=== PATIENT | male | born 1980 | race Caucasian/White ===

== ENCOUNTER 2020-02-19 20:58 | Observation (INO) | payer OTHER ==
[2020-02-19 21:06] VITALS: BMI 30.2
--- OUTSIDE RECORDS SUMMARY | 2020-02-19 21:17 | XMS ---
:1980 Author Organization [facility] Support Name Relationship Address Phone UE Unavailable Unavailable Unavailable LISSETTE SOTO FATHER [address] [place] [id number] Re-disclosure Warning The records that you are about to access may contain information from federally- assisted alcohol or drug abuse programs. If such information is present, then the following federally mandated warning applies: This information has been disclosed to you from records protected by federal confidentiality rules (42 CFR part 2). The federal rules prohibit you from making any further disclosure of this information unless further disclosure is expressly permitted by the written consent of the person to whom it pertains or as otherwise permitted by 42 CFR part 2. A general authorization for the release of medical or other information is NOT sufficient for this purpose. The Federal rules restrict any use of the information to criminally investigate or prosecute any alcohol or drug abuse patient.The records that you are about to access may contain highly sensitive health information, the redisclosure of which is protected by Article 27-F of the [facility] Public Health law. If you continue you may haveaccess to information: Regarding HIV / AIDS; Provided by facilities licensed or operated by the [facility] Office of Mental Health; or Provided by the [facility] Office for People With Developmental Disabilities. If such information is present, then the following [facility] mandated warning applies: This information has been disclosed to you from confidential records which are protected by state law. State law prohibits you from making any further disclosure of this information without the specific written consent of the person to whom it pertains, or as otherwise permitted by law. Any unauthorized further disclosure in violation of state law may result in a fine or skilled nursing sentence or both. A general authorization for the release of medical or other information is NOT sufficient authorization for further disclosure. Insurance Providers Payer name Policy type Policy ID Covered Covered alliance party's Policy P tien / Coverage alliance party ID relationship to [place] Inf ormation type [place] SELF PAY SP INSURANCE
--- NOTE | 2020-02-19 21:23 | PDOC ---
History of Present Illness - General Chief Complaint: Allergic Reaction Stated Complaint: HIVES Time Seen by Provider: 02/19/20 21:23 - History of Present Illness Initial Comments: 02/19/20 21:48 39 y.o. M no significant PMHx presenting due to an allergic reaction. Patients son was by bedside translating. Patient had been driving around 7pm today when he started to break out in hives. Prior to this event there is no recall of any insect bites or medications taken. The last meal was at 12pm which was chicken and rice and they were at work today in a boogie environment. PMHx: None Meds: In Chart Past History - Medical History Allergies/Adverse Reactions: Allergies Allergy/AdvReac Type Severity Reaction Status Date / Time No Known Allergies Allergy Verified 02/19/20 21:06 Home Medications: Ambulatory Orders NK [No Known Home Medication] 02/20/20 COPD: No Other medical history: gout? - Psycho-Social/Smoking History Smoking History: Never smoked - Substance Abuse Hx (Audit-C & DAST Scrn) How often the patient has a drink containing alcohol: Never Score: In Men: 4 or > Positive; In Women: 3 or > Positive: 0 Screen Result (Pos requires Nsg. Audit-10AR): Negative In the last yr the pt used illegal drug/Rx for NonMed reason: No Score: Yes response is considered Positive: 0 Screen Result (Positive result requires Nsg. DAST-10): Negative Review of Systems - Review of Systems Able to Perform ROS?: Yes Is the patient limited Divehi proficient: Yes Constitutional: No: Chills, Fever HEENTM: No: Blurred Vision, Double Vision Respiratory: No: Cough, Shortness of Breath Cardiac (ROS): Yes: Lightheadedness. No: Chest Pain ABD/GI: Yes: Nausea, Vomiting. No: Constipated, Diarrhea : No: Burning, Dysuria Musculoskeletal: No: Back Pain, Muscle Weakness Integumentary: Yes: Flushing, Pruritus, Rash. No: Bruising, Sweating Neurological: Yes: Dizziness. No: Headache, Numbness Hematologic/Lymphatic: No: Easy Bleeding, Easy Bruising *Physical Exam - Vital Signs Last Vital Signs Temp Pulse Resp BP Pulse Ox 97.8 F 114 H 19 116/85 97 02/19/20 21:01 02/19/20 21:01 02/19/20 21:01 02/19/20 21:01 02/19/20 21:01 - Physical Exam General Appearance: Yes: Nourished, Appropriately Dressed. No: Apparent Distress HEENT: positive: Normal ENT Inspection, Normal Voice Respiratory/Chest: positive: Lungs Clear, Normal Breath Sounds. negative: Chest Tender, Crackles, Rales, Stridor, Wheezing Cardiovascular: positive: Regular Rhythm, Regular Rate. negative: Edema, JVD, Murmur Gastrointestinal/Abdominal: positive: Normal Bowel Sounds, Flat, Soft. negative: Tender Musculoskeletal: positive: Normal Inspection. negative: CVA Tenderness Extremity: negative: Normal Inspection, Normal Range of Motion, Tender, Swelling, Calf Tenderness Integumentary: positive: Dry, Warm, Hives (Diffuse hives on the upper extremitie s), Rash, Swelling Neurologic: positive: Fully Oriented, Alert, Normal Mood/Affect, Normal Response ED Treatment Course - LABORATORY CBC & Chemistry Diagram: 02/20/20 05:30 02/20/20 05:30 Medical Decision Making - Medical Decision Making 02/19/20 21:51 39 y.o. M no significant PMHx presenting due to an allergic reaction. DDx: Anaphylactic reaction Labs: WBC 12.4, Na 134 CXR: Pending EKG: NSR, QTc 425ms, rate 76 Dispo: Admit - While speaking with the patient he had a syncopal event on the stretcher, patients pressure dropped, had 300mL of green emesis. We gave him one round of IM Epi, 50mg Benadryl, Pepcid and 1L NS. 02/19/20 22:54 02/19/20 23:34 Discharge - Discharge Information Problems reviewed: Yes Clinical Impression/Diagnosis: Anaphylaxis Qualifiers: Encounter type: initial encounter Qualified Code(s): T78.2XXA - Anaphylactic shock, unspecified, initial encounter Condition: Critical - Admission Yes - Follow up/Referral - Patient Discharge Instructions - Post Discharge Activity
[2020-02-19] MEDS ORDERED: methylPREDNISolone NA SUCC 125 MG/2 ML VIAL IVPUSH ONE (21:30)
[2020-02-19] MEDS ORDERED: FAMOTIDINE 20 MG/50 ML IVPB 20 MG/50 ML MG IVPB ONE ×3 (21:30→22:08)
[2020-02-19] MEDS ORDERED: methylPREDNISolone NA SUCC 125 MG/2 ML VIAL ONE ×2 (21:32→22:07)
[2020-02-19] MEDS ORDERED: EPINEPHrine/PF 1 MG/1 ML (1:1,000) AMPULE ONE (21:36)
[2020-02-19] MEDS ORDERED: EPINEPHrine 1:1,000 0.3 MG/0.3 ML SYR IM ONE (21:45)
[2020-02-19] MEDS ORDERED: SODIUM CHLORIDE 0.9% 1000 ML INFUS.BAG IV ONE (21:46)
[2020-02-19] MEDS ORDERED: ONDANSETRON 4 MG/2 ML VIAL IVPUSH ONE (21:46)
--- NOTE | 2020-02-19 21:47 | PDOC ---
Documentation entered by Garland Wong SCRIBE, acting as scribe for Ju Bustillo DO. Ju Bustillo, : This documentation has been prepared by the Judith hernandez Xhesika, SCRIBE, under my direction and personally reviewed by me in its entirety. I confirm that the documentation accurately reflects all work, treatment, procedures, and medical decision making performed by me. Attending Attestation - Resident Resident Name: Ermias Villavicencio - ED Attending Attestation I have performed the following: I have examined & evaluated the patient, The case was reviewed & discussed with the resident, I agree w/resident's findings & plan, Exceptions are as noted - HPI HPI: 02/19/20 21:41 39y/o M with no PMH of who presents to the ED with entire body hives and itchiness s/p allergic reaction. Per son at bedside, the pt was driving at around 7PM and started to break out in hives. Pt's last meal was chicken and rice at 12PM. Son notes the patient was at work in a boogie environment today. Pt had a syncopal episode while in the ED hallway. Allergies: NKDA - Physicial Exam PE: 02/19/20 21:42 GENERAL: Awake, alert, and oriented HEAD: No signs of trauma EYES: PERRLA, EOMI, sclera anicteric, conjunctiva clear ENT: Auricles normal inspection, hearing grossly normal, nares patent, oropharynx clear without exudates. Moist mucosa. Uvula midline, not edematous. NECK: Normal ROM, supple, no lymphadenopathy, JVD, or masses LUNGS: Breath sounds equal, clear to auscultation bilaterally. No wheezes, and no crackles HEART: +tachy,+hypotensive. no murmurs, rubs or gallops ABDOMEN: Soft, nontender, normoactive bowel sounds. EXTREMITIES: Normal range of motion, no edema. No clubbing or cyanosis. No cords, erythema, or tenderness NEUROLOGICAL: Cranial nerves II through XII grossly intact. SKIN: Warm, Dry. +hives from head to toe - Critical Care Time Total Critical Care Time: 35 Critical Care Statement: The care of this patient involved high complexity decision making to prevent further life threatening deterioration of the patient's condition and/or to evaluate & treat vital organ system(s) failure or risk of failure. - Medical Decision Making 02/19/20 22:13 a/p: 39yo male with a acute allergic reaction tonight -was driving in the car home from work when he told his friend he didn't feel -pt acutely developed hives -in the ER pt became hypotensive, tachy - 84/62, HR 132 -pt vomited -pt having an anaphylactic reaction -no airway involvement, no lip or tongue swelling, tolerating secretions, no stridor or wheezing 02/19/20 23:28 pt feeling better hives resolved airway patent no stridor no wheezing no tongue or lip swelling no angioedema bp improved -labs reviewed potassium hemolyzed will repeat chem/potassium 02/20/20 00:18 pt pending admission repeat chem shows potassium of 4 pt feeling much better, resting comfortably microblog sent for admission 02/20/20 00:19 Heart Score/ECG Review - ECG Intrepretation Comment:: 02/19/20 22:31 sinus at 76, nl axis, nl interval, no acute st/t wave findings Discharge - Discharge Information Problems reviewed: Yes Clinical Impression/Diagnosis: Anaphylaxis Condition: Critical - Follow up/Referral - Patient Discharge Instructions - Post Discharge Activity
[2020-02-19 22:37] LABS: BASO % 0.4 % (0-2.0); EOS % 1.4 % (0-4.5); HEMATOCRIT 49.1 % (35.4-49); HEMOGLOBIN 16.5 GM/dL (11.7-16.9); LYMPH % 33.4 % (8-40); MCH 29.4 pg (25.7-33.7); MCHC 33.7 g/dl (32.0-35.9); MEAN CELL VOLUME 87.4 fl (80-96); MEAN PLT VOLUME 8.1 fl (7.5-11.1); MONO % 7.4 % (3.8-10.2); NEUT % 57.4 % (42.8-82.8); PLATELET COUNT 312 K/MM3 (134-434); RBC 5.62 M/mm3 (4.00-5.60); RDW 12.7 % (11.9-15.9); WHITE BLOOD COUNT 12.4 K/mm3 (4.0-10.0)
[2020-02-19 23:20] LABS: ALK PHOS 70 U/L (45-117); ANION GAP 5 MMOL/L (8-16); BILIRUBIN,TOTAL 0.4 mg/dL (0.2-1); BLOOD UREA NITROGEN 15.2 mg/dL (7-18); CALCIUM 8.3 mg/dL (8.5-10.1); CHLORIDE 108 mmol/L (98-107); CO2 20 mmol/L (21-32); CREATININE 1.1 mg/dL (0.55-1.3); GLUCOSE,RANDOM 127 mg/dL (74-106); LIPASE 21 U/L (73-393); MAGNESIUM 2.2 mg/dL (1.8-2.4); SGOT/AST 133 U/L (15-37); SGPT/ALT 52 U/L (13-61); SODIUM 134 mmol/L (136-145); TOT PROT 6.9 g/dl (6.4-8.2)
[2020-02-19 23:22] LABS: POTASSIUM 8.8 mmol/L (3.5-5.1)
--- OUTSIDE RECORDS SUMMARY | 2020-02-20 00:58 | XMS ---
:1980 Author Organization [facility] Support Name Relationship Address Phone UE, UNEMPLOYED Unavailable Unavailable Unavailable UE Unavailable Unavailable Unavailable LISSETTE SOTO FATHER [address] [place] [address] Re-disclosure Warning The records that you are [...] is protected by Article 27-F of the [facility] Public Health law. If you continue you may haveaccess to information: Regarding HIV / AIDS; Provided by facilities licensed or operated by the [facility] Office of Mental Health; or Provided by the [facility] Office for People With Developmental Disabilities. If such information is present, then the following [facility] mandated warning applies: This information has [...] law may result in a fine or alf sentence or both. A general authorization for the release of medical or other information is NOT sufficient authorization for further disclosure. Insurance Providers Payer name Policy type Policy ID Covered Covered democrat's Policy P tien / Coverage democrat ID relationship to [place] Inf ormation type [place] SELF PAY SP INSURANCE
--- NOTE | 2020-02-20 01:15 | PN ---
Teaching Attending Note Name of Resident: Pérez Fu ATTENDING PHYSICIAN STATEMENT I saw and evaluated the patient. I reviewed the resident's note and discussed the case with the resident. I agree with the resident's findings and plan as documented. SUBJECTIVE: Patient is a 39 year old man with no reported PMH presenting with generalized hives and itching. Patient's son was by bedside translating. Patient had been driving around 7 pm today when he started to break out in hives. Prior to this event there is no recall of any insect bites or medications taken. The last meal was at 12 pm which was chicken and rice and they were at work today in a boogie environment. While in the ER, patient had a syncopal episode, vomited and became hypotensive (84/62) and tachycardic (132). Patient denies chest pain, shortness of breath, abdominal pain, headache, palpitations, dizziness, fever, chills, diarrhea, constipation, dysuria, frequency, urgency, melena, hematochezia or hematuria. Denies alcohol, tobacco or illicit drug use. No sick contacts or recent travels. Family history is unremarkable. OBJECTIVE: Alert Vital Signs Period Temp Pulse Resp BP Sys/Wilson Pulse Ox Last 24 Hr 97.8 F 114 19 116/85 97 HEENT: No Jaundice, eye redness or discharge, PERRLA, EOMI. Normocephalic, atraumatic. External ears are normal and hearing is grossly intact. No nasal discharge. Neck: Supple, nontender. No palpable adenopathy or thyromegaly. No JVD Chest: Good effort. Clear to auscultation and percussion. Heart: Regular. No S3, rub or murmur Abdomen: Not distended, soft, nontender and no HSM. No rebound or guarding. Normal bowel sounds. Ext: Peripheral pulses intact. No leg edema. Skin: Warm and dry. No petechiae, rash or ecchymosis. Hives on arms and trunk. Neuro: Alert. Oriented x3. CN 2-12 grossly intact. Sensation grossly intact in all four extremities and DTR are symmetric. Psych: Appropriate mood and affect. Good insight. Abnormal Lab Results 02/19/20 02/19/20 22:02 22:02 WBC 12.4 H RBC 5.62 H Hct 49.1 H Sodium 134 L Potassium 8.8 H* Chloride 108 H Carbon Dioxide 20 L Anion Gap 5 L Random Glucose 127 H Calcium 8.3 L AST 133 H Creatine Kinase 370 H Albumin 3.0 L Lipase 21 L Current Medications Generic Name Dose Route Start Last Admin Trade Name Freq PRN Reason Stop Dose Admin Enoxaparin Sodium 40 mg 02/20/20 10:00 Lovenox - SQ DAILY UGO Famotidine 20 mg 02/20/20 10:00 Pepcid - PO BID UGO Sodium Chloride 1,000 mls @ 100 mls/hr 02/20/20 03:30 Normal Saline - IV 02/20/20 13:29 ASDIR UGO Methylprednisolone Sodium Succinate 40 mg 02/20/20 10:00 Solu-Medrol - IVPUSH Q8H-IV UGO ASSESSMENT AND PLAN: 1. Anaphylaxis - CXR shows cardiomegaly, poor inspiratory effort and ?trachea deviation to the right. ER staff prescribed Epinephrine IM, Benadryl, Pepcid, Zofran, Solumedrol and IV NS for the patient. Will continue IV NS, Benadryl and Solumedrol, Zofran PRN and monitor closely for respiratory compromise and get urine toxicology and TSH. Leukocytosis likely due to stress but urinalysis pending. EKG shows NSR at 76/minute and QTc 425 with no significant acute ischemic ST-T wave changes. No old EKG available for comparison. Initial troponin is negative. Viral testing for COVID-19 ordered and patient placed on airborne, droplet and contact isolation. Started on supplemental oxygen via nasal cannula. Will continue comprehensive care for all of patients comorbid conditions. 2. Hypoalbuminemia - Possibly due to combined effects of malnutrition and inflammation associated with comorbid conditions. Will ensure adequate dietary protein intake and also consult hand paint mixer. Urinalysis pending. 3. Obesity Counseled on the risks associated with obesity. Will provide patient all the necessary assistance, counseling and positive reinforcement to facilitate weight loss. Consult hand paint mixer. 4. DVT prophylaxis - Lovenox 40 mg SQ q 24 hours. 5. Advance directives - Full code
--- NOTE | 2020-02-20 01:30 | HP ---
CHIEF COMPLAINT: hives and tachycardia PCP: None HISTORY OF PRESENT ILLNESS: Mr. Guy roe is a 39M Peruvian speaking male w/o any significant past medical history reporting to the ED after experiencing an episode of diffuse bodily hives starting at 7PM. The patient saw that his arm had developed hives. The son was accompanying his father and had brought him to the ED. In the emergency department the patient had developed tachycardia and had 1 vagal episode. The patients BP was 80s/40's and had received epinephrine, prednisone, and famotidine. The patient had returned to baseline and the hives had reduced slightly. The patient states that prior to arriving to the emergency department he had drank green Gatorade. The last meal he had eaten was chicken and rice at around noon. 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 Recent Travel: denies PAST MEDICAL HISTORY: denies PAST SURGICAL HISTORY: denies Social History: Smoking:denies Alcohol: denies Drugs: denies Allergies No Known Allergies Allergy (Verified 02/19/20 21:06) HOME MEDICATIONS: REVIEW OF SYSTEMS see above PHYSICAL EXAMINATION Vital Signs - 24 hr 02/19/20 21:01 Temperature 97.8 F Pulse Rate 114 H Respiratory 19 Rate Blood Pressure 116/85 O2 Sat by Pulse 97 Oximetry (%) GENERAL: Awake, alert, and fully oriented, in no acute distress. HEAD: Normal with no signs of trauma. LUNGS: Breath sounds equal, clear to auscultation bilaterally. No wheezes, and no crackles. No accessory muscle use. HEART: Regular rate and rhythm, normal S1 and S2 without murmur, rub or gallop. ABDOMEN: Soft, nontender, not distended, normoactive bowel sounds, no guarding, no rebound, no masses. No hepatomegaly or splenomegaly. LOWER EXTREMITIES: 2+ pulses, warm, well-perfused. No calf tenderness. No peripheral edema. SKIN: Mild hives around waistline, antecubital fossa bilateraly Laboratory Results - last 24 hr 02/19/20 02/19/20 02/19/20 22:02 22:02 23:40 WBC 12.4 H RBC 5.62 H Hgb 16.5 Hct 49.1 H MCV 87.4 MCH 29.4 MCHC 33.7 RDW 12.7 Plt Count 312 MPV 8.1 Absolute Neuts (auto) 7.1 Neutrophils % 57.4 Lymphocytes % 33.4 Monocytes % 7.4 Eosinophils % 1.4 Basophils % 0.4 Nucleated RBC % 0 Sodium 134 L Potassium 8.8 H* 4.3 Chloride 108 H Carbon Dioxide 20 L Anion Gap 5 L BUN 15.2 Creatinine 1.1 Est GFR (CKD-EPI)AfAm 98.87 Est GFR (CKD-EPI)NonAf 85.31 Random Glucose 127 H Calcium 8.3 L Magnesium 2.2 Total Bilirubin 0.4 AST 133 H ALT 52 Alkaline Phosphatase 70 Creatine Kinase 370 H Creatine Kinase Index No Result Required. CK-MB (CK-2) < 1.0 Troponin I < 0.02 Total Protein 6.9 Albumin 3.0 L Lipase 21 L ASSESSMENT/PLAN: Mr. Guy roe is a 39M Peruvian speaking male w/o any significant past medical history reporting to the ED after experiencing an episode of diffuse bodily hives starting at 7PM. #Anaphylaxis - admit to tele/obs - for possible biphasic anaphylactic reaction - Clinical picture consistent with moderate or transiently severe allergic reaction/anaphylaxis - Call MD/PA for worsening dyspnea, stridor, or increased edema - Continuous Pulse Oximetry - Evaluate for discharge criteria every 4 hours - Cardiac monitoring - IV Saline Lock - Famotidine/benadryl prn for itchng - Follow up UTOX - follow up TSH # Diet: regular , advance as tolerated # DVT ppx - lovenox sq #Dispo - tele obs # Advanced directive - Full Code ATTENDING PHYSICIAN STATEMENT I saw and evaluated the patient. I reviewed the resident's note and discussed the case with the resident. I agree with the resident's findings and plan as documented. SUBJECTIVE: OBJECTIVE: ASSESSMENT AND PLAN:
[2020-02-20] MEDS ORDERED: SODIUM CHLORIDE 1,000 ML IV SCH (03:30)
[2020-02-20 06:41] LABS: BASO % 0.1 % (0-2.0); EOS % 0.1 % (0-4.5); HEMATOCRIT 46.9 % (35.4-49); HEMOGLOBIN 15.7 GM/dL (11.7-16.9); LYMPH % 10.1 % (8-40); MCH 29.7 pg (25.7-33.7); MCHC 33.5 g/dl (32.0-35.9); MEAN CELL VOLUME 88.7 fl (80-96); MEAN PLT VOLUME 8.6 fl (7.5-11.1); MONO % 1.5 % (3.8-10.2); NEUT % 88.2 % (42.8-82.8); PLATELET COUNT 298 K/MM3 (134-434); RBC 5.29 M/mm3 (4.00-5.60); RDW 12.6 % (11.9-15.9); WHITE BLOOD COUNT 8.2 K/mm3 (4.0-10.0)
[2020-02-20 07:18] LABS: ALBUMIN 3.3 g/dl (3.4-5.0); BILIRUBIN,TOTAL 0.9 mg/dL (0.2-1); CALCIUM 8.7 mg/dL (8.5-10.1); POTASSIUM 4.6 mmol/L (3.5-5.1); TOT PROT 6.5 g/dl (6.4-8.2)
[2020-02-20] MEDS ORDERED: ACETAMINOPHEN 325 MG TABLET (FP) PO PRN (08:50)
[2020-02-20] MEDS ORDERED: diphenhydrAMINE HCL 25 MG CAPSULE (FP) PO PRN (08:50)
[2020-02-20] MEDS ORDERED: ENOXAPARIN NA (PORCINE) 40 MG/0.4 ML DISP.SYRIN SQ ONE (09:11)
[2020-02-20] MEDS ORDERED: methylPREDNISolone NA SUCC 40 MG/1 ML VIAL ONE (09:11)
[2020-02-20] MEDS ORDERED: FAMOTIDINE 20 MG TABLET ONE ×2 (09:11→15:12)
[2020-02-20 09:25] LABS: COCAINE, UR NEGATIVE ng/ml (CUTOFF=300); METHADONE, UR NEGATIVE ng/ml (CUTOFF=300); OPIATES, URI NEGATIVE ng/ml (CUTOFF=300); PHENCYCLIDINE,URINE NEGATIVE ng/ml (CUTOFF=25); URINE BARBITURATES NEGATIVE ng/ml (CUTOFF=200); URINE BENZODIAZEPINES NEGATIVE ng/ml (CUTOFF=200)
[2020-02-20 09:34] LABS: URINE AMPHETAMINES NEGATIVE ng/ml (CUTOFF=500)
--- NOTE | 2020-02-20 09:52 | PN ---
Physical Exam: SUBJECTIVE: Patient seen and examined in the ED awaiting bed assignment. he is sitting up, ambulating without any c/o of shortness of breath. denies any wheezing, tachycardia or chest pain Patient tells me he ate chicken and rice yesterday afternoon prepared by his , he drank green or blue gatorade after that. He denies any allergies and is on no home medications. He has a PCP in [facility] and states he will follow up with his PCP on d/c. Tells me that his PCP has told him that he has gout and should avoid shellfish which patient has avoided. He is not allergic to shellfish and denies ingesting any prior to this event. He denies any drug use, and his utox supports this. He showed me pictures he took after the anaphyactic reaction that were on his phone. it showed welts across his over chest and his lower back. Welts are no longer visible.. He has very mild erythema underneath his arm pits only OBJECTIVE: on room air, airway patent, no edema of tongue or oral cavity vitals stable will stop iv push solumedrol and replace with prednisone 40mg at 3pm today. he received a dose of 40mg at 10am today Patient asking to go home. He agrees to follow up with an director of search engine optimization and his PCP Assured him that I lizzy re assess him at 3pm today and we can discuss possible d/c home ----- Patient is a 39 year old male with a past medical history of gout (no longer on medications). He reports to the ED after experiencing an episode of diffuse bodily hives starting at 7PM on 02/18. The patient saw that his arm had developed hives. The son was accompanying his father and had brought him to the ED. In the emergency department the patient had developed tachycardia and had 1 vagal episode. The patients BP was 80s/40's and had received epinephrine, prednisone, and famotidine. The patient had returned to baseline and the hives are no longer evident. The patient states that prior to arriving to the e mergency department he had drank green or blue Gatorade. The last meal he had eaten was chicken and rice at around noon which was prepared by his spouse. 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 Vital Signs Period Temp Pulse Resp BP Sys/Wilson Pulse Ox Last 24 Hr 97.8 F-98 F 67-114 14-20 102-123/69-85 95-97 GENERAL: The patient is awake, alert, and fully oriented, in no acute distress. HEAD: Normal with no signs of trauma. EYES: PERRL, extraocular movements intact, sclera anicteric, conjunctiva clear. No ptosis. ENT: Ears normal, nares patent, oropharynx clear without exudates, moist mucous membranes. NECK: Trachea midline, full range of motion, supple. LUNGS: Breath sounds equal, clear to auscultation bilaterally, no wheezes HEART: Regular rate and rhythm ABDOMEN: Soft, nontender, nondistended, normoactive bowel sounds EXTREMITIES: no edema. NEUROLOGICAL: C Normal speech, gait not observed. PSYCH: Normal mood, normal affect. SKIN: very mild erythema around arm pits, welts on anterior chest and back are no longer evident Laboratory Results - last 24 hr 02/19/20 02/19/20 02/19/20 22:02 22:02 23:40 WBC 12.4 H RBC 5.62 H Hgb 16.5 Hct 49.1 H MCV 87.4 MCH 29.4 MCHC 33.7 RDW 12.7 Plt Count 312 MPV 8.1 Absolute Neuts (auto) 7.1 Neutrophils % 57.4 Lymphocytes % 33.4 Monocytes % 7.4 Eosinophils % 1.4 Basophils % 0.4 Nucleated RBC % 0 Sodium 134 L Potassium 8.8 H* 4.3 Chloride 108 H Carbon Dioxide 20 L Anion Gap 5 L BUN 15.2 Creatinine 1.1 Est GFR (CKD-EPI)AfAm 98.87 Est GFR (CKD-EPI)NonAf 85.31 Random Glucose 127 H Calcium 8.3 L Magnesium 2.2 Total Bilirubin 0.4 AST 133 H ALT 52 Alkaline Phosphatase 70 Creatine Kinase 370 H Creatine Kinase Index No Result Required. CK-MB (CK-2) < 1.0 Troponin I < 0.02 Total Protein 6.9 Albumin 3.0 L Lipase 21 L TSH Opiates Screen Methadone Screen Barbiturate Screen Phencyclidine Screen Ur Amphetamines Screen MDMA (Ecstasy) Screen Benzodiazepines Screen Cocaine Screen U Marijuana (THC) Screen 10/16/20 10/16/20 10/16/20 05:30 05:30 08:30 WBC 8.2 RBC 5.29 Hgb 15.7 Hct 46.9 MCV 88.7 MCH 29.7 MCHC 33.5 RDW 12.6 Plt Count 298 MPV 8.6 Absolute Neuts (auto) 7.2 Neutrophils % 88.2 H D Lymphocytes % 10.1 D Monocytes % 1.5 L Eosinophils % 0.1 D Basophils % 0.1 Nucleated RBC % 0 Sodium 137 Potassium 4.6 Chloride 106 Carbon Dioxide 27 Anion Gap 4 L BUN 15.0 Creatinine 1.0 Est GFR (CKD-EPI)AfAm 110.94 Est GFR (CKD-EPI)NonAf 95.72 Random Glucose 145 H Calcium 8.7 Magnesium Total Bilirubin 0.9 AST 19 ALT 44 Alkaline Phosphatase 74 Creatine Kinase Creatine Kinase Index CK-MB (CK-2) Troponin I Total Protein 6.5 Albumin 3.3 L Lipase TSH 0.80 Opiates Screen Negative Methadone Screen Negative Barbiturate Screen Negative Phencyclidine Screen Negative Ur Amphetamines Screen Negative MDMA (Ecstasy) Screen Negative Benzodiazepines Screen Negative Cocaine Screen Negative U Marijuana (THC) Screen Negative Active Medications Generic Name Dose Route Start Last Admin Trade Name Freq PRN Reason Stop Dose Admin Acetaminophen 650 mg 02/20/20 08:50 Tylenol - PO Q6H PRN PAIN LEVEL 4 - 6 Diphenhydramine HCl 25 mg 02/20/20 08:50 Benadryl - PO Q6H PRN FOR ITCHING Enoxaparin Sodium 40 mg 02/20/20 10:00 02/20/20 09:25 Lovenox - SQ 40 mg DAILY UGO Administration Famotidine 20 mg 02/20/20 10:00 02/20/20 09:25 Pepcid - PO 20 mg BID UGO Administration Sodium Chloride 1,000 mls @ 100 mls/hr 02/20/20 03:30 02/20/20 03:38 Normal Saline - IV 02/20/20 13:29 100 mls/hr ASDIR UGO Administration Prednisone 40 mg 02/20/20 15:00 Deltasone - PO 02/20/20 15:01 ONCE ONE ASSESSMENT/PLAN: Problem List - Problems (1) Anaphylaxis Assessment/Plan: resolved patient treated emergency in the ED with epinephrine, steriods (solumedrol). admitted for severe allergic reaction/anaphylaxis to unknown source. stable on room air, no acute issues. No dyspnea, no shortness of breath and airway is patent patient monitored in the ED and all symptoms have resolved will convert to Prednisone taper and sent home with PCP and director of search engine optimization follow up Code(s): T78.2XXA - ANAPHYLACTIC SHOCK, UNSPECIFIED, INITIAL ENCOUNTER Qualifiers: Encounter type: initial encounter Qualified Code(s): T78.2XXA - Anaphylactic shock, unspecified, initial encounter Visit type - Emergency Visit Emergency Visit: Yes ED Registration Date: 02/20/20 Care time: The patient presented to the Emergency Department on the above date and was hospitalized for further evaluation of their emergent condition. - New Patient This patient is new to me today: Yes Date on this admission: 02/20/20 - Critical Care Critical Care patient: No - Discharge Referral Referred to [facility] No
[2020-02-20] MEDS ORDERED: ENOXAPARIN NA (PORCINE) 40 MG/0.4 ML DISP.SYRIN SQ SCH (10:00)
[2020-02-20] MEDS ORDERED: FAMOTIDINE 20 MG TABLET PO SCH (10:00)
[2020-02-20] MEDS ORDERED: methylPREDNISolone NA SUCC 40 MG/1 ML VIAL IVPUSH SCH (10:00)
--- NOTE | 2020-02-20 13:49 | EKG ---
Test Reason : Blood Pressure : / mmHG Vent. Rate : 076 BPM Atrial Rate : 076 BPM P-R Int : 152 ms QRS Dur : 086 ms QT Int : 378 ms P-R-T Axes : 049 096 034 degrees QTc Int : 425 ms NORMAL SINUS RHYTHM RIGHTWARD AXIS NONSPECIFIC ST ABNORMALITY ABNORMAL ECG NO PREVIOUS ECGS AVAILABLE Confirmed by JULIANNA FERRARO MD ([id number]) on 02/20/2020 1:49:24 PM Referred By: Confirmed By:JULIANNA FERRARO MD
--- NOTE | 2020-02-20 13:49 | EKG ---
Test Reason : Blood Pressure : / mmHG Vent. Rate : 067 BPM Atrial Rate : 067 BPM P-R Int : 146 ms QRS Dur : 078 ms QT Int : 366 ms P-R-T Axes : 058 085 048 degrees QTc Int : 386 ms NORMAL SINUS RHYTHM EARLY REPOLARIZATION WHEN COMPARED WITH ECG OF 19-FEB-2020 22:09, NO SIGNIFICANT CHANGE WAS FOUND Confirmed by JULIANNA FERRARO MD ([id number]) on 02/20/2020 1:48:38 PM Referred By: Confirmed By:JULIANNA FERRARO MD
[2020-02-20] MEDS ORDERED: predniSONE 20 MG TABLET (UD) PO ONE (15:00)
[2020-02-20] MEDS ORDERED: predniSONE 20 MG TABLET (UD) ONE (15:12)
[2020-02-20 15:15] VITALS: BP 124/68; PULSE 80; TEMP 98.5
--- NOTE | 2020-02-20 18:10 | DS ---
Physical Exam: SUBJECTIVE: Patient seen and examined in the ED awaiting bed assignment. he is sitting up, ambulating without any c/o of shortness of breath. denies any wheezing, tachycardia or chest pain Patient tells me he ate chicken and rice yesterday afternoon prepared by his , he drank green or blue gatorade after that. He denies any allergies and is on no home medications. He has a PCP in [facility] and states he will follow up with his PCP on d/c. Tells me that his PCP has told him that he has gout and should avoid shellfish which patient has avoided. He is not allergic to shellfish and denies ingesting any prior to this event. He denies any drug use, and his utox supports this. He showed me pictures he took after the anaphyactic reaction that were on his phone. it showed welts across his over chest and his lower back. Welts are no longer visible.. He has very mild erythema underneath his arm pits only OBJECTIVE: on room air, airway patent, no edema of tongue or oral cavity vitals stable will stop iv push solumedrol and replace with prednisone 40mg at 3pm today. he received a dose of 40mg at 10am today Patient asking to go home. He agrees to follow up with an hostess cashier and his PCP Assured him that I lizzy re assess him at 3pm today and we can discuss possible d/c home ----- Patient is a 39 year old male with a past medical history of gout (no longer on medications). He reports to the ED after experiencing an episode of diffuse bodily hives starting at 7PM on 02/18. The patient saw that his arm had developed hives. The son was accompanying his father and had brought him to the ED. In the emergency department the patient had developed tachycardia and had 1 vagal episode. The patients BP was 80s/40's and had received epinephrine, prednisone, and famotidine. The patient had returned to baseline and the hives are no longer evident. The patient states that prior to arriving to the e mergency department he had drank green or blue Gatorade. The last meal he had eaten was chicken and rice at around noon which was prepared by his spouse. 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 LABS Laboratory Results - last 24 hr 02/19/20 02/19/20 02/19/20 22:02 22:02 23:40 WBC 12.4 H RBC 5.62 H Hgb 16.5 Hct 49.1 H MCV 87.4 MCH 29.4 MCHC 33.7 RDW 12.7 Plt Count 312 MPV 8.1 Absolute Neuts (auto) 7.1 Neutrophils % 57.4 Lymphocytes % 33.4 Monocytes % 7.4 Eosinophils % 1.4 Basophils % 0.4 Nucleated RBC % 0 Sodium 134 L Potassium 8.8 H* 4.3 Chloride 108 H Carbon Dioxide 20 L Anion Gap 5 L BUN 15.2 Creatinine 1.1 Est GFR (CKD-EPI)AfAm 98.87 Est GFR (CKD-EPI)NonAf 85.31 Random Glucose 127 H Calcium 8.3 L Magnesium 2.2 Total Bilirubin 0.4 AST 133 H ALT 52 Alkaline Phosphatase 70 Creatine Kinase 370 H Creatine Kinase Index No Result Required. CK-MB (CK-2) < 1.0 Troponin I < 0.02 Total Protein 6.9 Albumin 3.0 L Lipase 21 L TSH Opiates Screen Methadone Screen Barbiturate Screen Phencyclidine Screen Ur Amphetamines Screen MDMA (Ecstasy) Screen Benzodiazepines Screen Cocaine Screen U Marijuana (THC) Screen 02/20/20 02/20/20 02/20/20 05:30 05:30 08:30 WBC 8.2 RBC 5.29 Hgb 15.7 Hct 46.9 MCV 88.7 MCH 29.7 MCHC 33.5 RDW 12.6 Plt Count 298 MPV 8.6 Absolute Neuts (auto) 7.2 Neutrophils % 88.2 H D Lymphocytes % 10.1 D Monocytes % 1.5 L Eosinophils % 0.1 D Basophils % 0.1 Nucleated RBC % 0 Sodium 137 Potassium 4.6 Chloride 106 Carbon Dioxide 27 Anion Gap 4 L BUN 15.0 Creatinine 1.0 Est GFR (CKD-EPI)AfAm 110.94 Est GFR (CKD-EPI)NonAf 95.72 Random Glucose 145 H Calcium 8.7 Magnesium Total Bilirubin 0.9 AST 19 ALT 44 Alkaline Phosphatase 74 Creatine Kinase Creatine Kinase Index CK-MB (CK-2) Troponin I Total Protein 6.5 Albumin 3.3 L Lipase TSH 0.80 Opiates Screen Negative Methadone Screen Negative Barbiturate Screen Negative Phencyclidine Screen Negative Ur Amphetamines Screen Negative MDMA (Ecstasy) Screen Negative Benzodiazepines Screen Negative Cocaine Screen Negative U Marijuana (THC) Screen Negative HOSPITAL COURSE: Date of Admission:02/20/20 Date of Discharge: 02/20/20 Minutes to complete discharge: 45 Discharge Summary Problems reviewed: Yes Reason For Visit: ANAPHYLAXIS Condition: Stable - Instructions Diet, Activity, Other Instructions: DISCHARGE YOUR VISIT You came to the hospital because you were having an anaphylaxis reaction. We treated you with IV steriods, IV fluids and other emergency medications. You have improved and are stable to go home. It is important that you follow up with your primary care doctor on discharge. You will need to be referred to an HOT KNIFE CUTTER to figure out what you had a reaction to. MEDICATIONS each pill of prednsone is 20mg TAKE Prednisone 60mg on 02/21/2020 at 8am - 3 pills TAKE Prednisone 60mg on 02/22/2020 at 8am - 3 pills TAKE Prednisone 40mg on 02/23/2020 at 8am - 2 pills TAKE Prednisone 40mg on 02/24/2020 at 8am - 2 pills TAKE Prednisone 20mg on 02/25/2020 at 8am - 1 pill TAKE Prednisone 20mg on 02/26/2020 at 8am - 1 pill this is your last dose Take PEPCID 20mg TWICE per day while you are on the steriods Take Benadryl 50mg tonight and then take it as needed if you develop any itchiness.. DIET Continue your home diet ADDITIONAL CARE Please make an appointment to see your primary care provider, 1 week from today. ADDITIONAL INFORMATION Please call 911 or come directly to the emergency department if you experience unusual headache, vision change, shortness of breath, chest pain, numbness, tingling, loss of alertness/awareness, loss of function, unusual bleeding or any alarming symptoms. Thank you for allowing us to care for you. [facility] Referrals: ON STAFF,NOT [Non Staff, Medical] - Disposition: HOME - Home Medications Comprehensive Discharge Medication List: Ambulatory Orders Diphenhydramine HCl [Benadryl Capsule -] 25 mg PO Q6H PRN capsule 02/20/20 Famotidine [Pepcid -] 20 mg PO BID #60 tablet 02/20/20 predniSONE [Deltasone -] 60 mg PO DAILY #14 tablet 02/20/20 Prescription Drug Monitoring Program (I-STOP) results: I-STOP not reviewed Problem List - Problems (1) Anaphylaxis Assessment/Plan: resolved patient treated emergency in the ED with epinephrine, steriods (solumedrol). admitted for severe allergic reaction/anaphylaxis to unknown source. stable on room air, no acute issues. No dyspnea, no shortness of breath and airway is patent patient monitored in the ED and all symptoms have resolved will convert to Prednisone taper and sent home with PCP and hostess cashier follow up Code(s): T78.2XXA - ANAPHYLACTIC SHOCK, UNSPECIFIED, INITIAL ENCOUNTER Qualifiers: Encounter type: initial encounter Qualified Code(s): T78.2XXA - Anaphylactic shock, unspecified, initial encounter This patient is new to me today: Yes Date on this admission: 02/20/20 Emergency Visit: Yes ED Registration Date: 02/20/20 Care time: The patient presented to the Emergency Department on the above date and was hospitalized for further evaluation of their emergent condition. Critical Care patient: No - Discharge Referral Referred to [facility] No
== END 2020-02-20 15:55 | disposition home or self-care (01) ==
LOC: JER 20:58 → UNDOADMOB 02-20 00:46 → JERBED 02-20 00:46 → OBSVTOIN 02-20 02:14 → INTOOBSV 02-20 02:14 → JERBED 02-20 14:35
PROVIDERS: ADMIT Internal Medicine; ATTEND Nurse Practitioner Family
PROC: 3E0337Z Introduction of Electrolytic and Water Balance Substance into Peripheral Vein, Percutaneous Approach (ICD-10-PCS; principal; 2020-02-20)
PROC: 3E033GC Introduction of Other Therapeutic Substance into Peripheral Vein, Percutaneous Approach (ICD-10-PCS; 2020-02-20)
PROC: 3E023GC Introduction of Other Therapeutic Substance into Muscle, Percutaneous Approach (ICD-10-PCS; 2020-02-20)
DX: T78.2XXA Anaphylactic shock, unspecified, initial encounter (principal); E88.09 Other disorders of plasma-protein metabolism, not elsewhere classified; E66.9 Obesity, unspecified; Z68.30 Body mass index [BMI] 30.0-30.9, adult; Z29.9 Encounter for prophylactic measures, unspecified
CPT/HCPCS: 36415; 71045-TC-FY; 80053; 80307; 82550; 82553; 83690; 83735; 84132; 84443; 84484; 85025; 93005; 93010; 96361; 96365; 96372; 96375; 99291; C9803; G0378; U0003

== ENCOUNTER 2022-03-08 14:50 | Emergency (ER) | payer OTHER ==
[2022-03-08 15:41] VITALS: BP 115/62; PULSE 63; RESP 19; TEMP 98.1; BMI 28.3
[2022-03-08] MEDS ORDERED: DIPHTH,PERTUSS(ACELL),TET 0.5 ML DISP.SYRIN IM ONE ×2 (16:20→16:45)
== END 2022-03-08 17:41 | disposition home or self-care (01) ==
LOC: JER 14:50 → JERFT 14:50
PROC: 0HQFXZZ Repair Right Hand Skin, External Approach (ICD-10-PCS; principal; 2022-03-08)
PROC: 3E0234Z Introduction of Serum, Toxoid and Vaccine into Muscle, Percutaneous Approach (ICD-10-PCS; 2022-03-08)
DX: S61.210A Laceration without foreign body of right index finger without damage to nail, initial encounter (principal); W26.8XXA Contact with other sharp object(s), not elsewhere classified, initial encounter
CPT/HCPCS: 12001-25; 73140-TC-RT-FY; 90471; 90715; 99284-25